=== PATIENT | male | born 1990 | race African-American/Black ===

== ENCOUNTER 2016-11-14 11:36 | Outpatient (CLI) | payer MEDICAID ==
[2016-11-14 12:09] LABS: Basophils % (Auto) 1.1 % (0.0-1.8); Eosinophils % (Auto) 6.5 % (0.0-4.3); Mean Corpuscular HGB Conc 31 % (32-34); Platelet Count 294 K/mm3 (140-440); Red Blood Count 6.78 M/mm3 (3.65-5.03); Red Cell Distribution Width 14.7 % (13.2-15.2); White Blood Count 8.7 K/mm3 (4.5-11.0)
[2016-11-14 12:11] LABS: Mean Corpuscular Hemoglobin 21 pg (28-32); Mean Corpuscular Volume 68 fl (84-94)
[2016-11-14 12:17] LABS: Alanine Aminotransferase 11 units/L (7-56); Albumin 4.3 g/dL (3.9-5); Albumin/Globulin Ratio 1.7 %; Alkaline Phosphatase 86 units/L (35-129); Anion Gap 15 mmol/L; Bilirubin,Total 0.6 mg/dL (0.1-1.2); Blood Urea Nitrogen 7 mg/dL (9-20); Calcium 9.1 mg/dL (8.4-10.2); Carbon Dioxide 28 mmol/L (22-30); Chloride 103.3 mmol/L (98-107); Cholesterol 223 mg/dL (50-199); Glucose 88 mg/dL (75-100); HDL Cholesterol 39 mg/dL (40-59); LDL Cholesterol,Direct 149 mg/dL (50-130); Potassium 4.2 mmol/L (3.6-5.0); Sodium 142 mmol/L (137-145); Total Protein 6.9 g/dL (6.3-8.2); Triglycerides 177 mg/dL (2-149)
[2016-11-14 12:24] LABS: Hematocrit 45.8 % (35.5-45.6); Hemoglobin 14.1 gm/dl (11.8-15.2)
== END 2016-11-14 11:37 | disposition home or self-care (01) ==
LOC: LAB 11:36
PROVIDERS: ATTEND Psychiatry & Neurology Psychiatry
DX: F20.9 Schizophrenia, unspecified (principal); F70 Mild intellectual disabilities
CPT/HCPCS: 36415; 80053; 80061; 83036; 84146; 84439; 84443; 85025

== ENCOUNTER 2020-12-03 04:07 | Emergency (ER) | payer MEDICAID ==
[2020-12-03 05:36] VITALS: BP 108/81
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
== END 2020-12-03 11:00 | disposition home or self-care (01) ==
LOC: ED 04:07
DX: S01.01XA Laceration without foreign body of scalp, initial encounter (principal); R56.9 Unspecified convulsions; F17.200 Nicotine dependence, unspecified, uncomplicated; Z79.899 Other long term (current) drug therapy; Y04.2XXA Assault by strike against or bumped into by another person, initial encounter; Y93.89 Activity, other specified; Y92.89 Other specified places as the place of occurrence of the external cause; Y99.8 Other external cause status
CPT/HCPCS: 70450; 70486